=== PATIENT | female | born 1970 | race Caucasian/White ===

== ENCOUNTER → 2016-08-15 | Outpatient (CLI) | payer BC ==
--- NOTE | 2016-08-16 11:00 | MM ---
Reason for exam: screening (asymptomatic). Last mammogram was performed 1 year and 5 months ago. History: Family history of breast cancer in cousin. Physical Findings: A clinical breast exam by your physician is recommended on an annual basis and results should be correlated with mammographic findings. MG Screening Mammo w CAD Bilateral CC and MLO view(s) were taken. Prior study comparison: March 29, 2015, bilateral MG screening mammo w CAD. The breast tissue is almost entirely fat. No significant changes when compared with prior studies. ASSESSMENT: Benign, BI-RAD 2 RECOMMENDATION: Routine screening mammogram of both breasts in 1 year.
== END | disposition home or self-care (01) ==
LOC: RADMAMWWP 13:10
PROVIDERS: ATTEND Obstetrics & Gynecology
DX: Z12.31 Encounter for screening mammogram for malignant neoplasm of breast (principal)

== ENCOUNTER → 2016-08-15 | Outpatient (CLI) | payer BC ==
--- NOTE | 2016-08-15 15:02 | US ---
EXAMINATION TYPE: US thyroid st tissue head/neck DATE OF EXAM: 08/15/2016 COMPARISON: US CLINICAL HISTORY: E04.1 Thyroid nodule. Thyroid nodules GLAND SIZE: Right Lobe: 5.3 x 1.6 x 1.9 cm Overall Parenchyma: heterogenous Left Lobe: 4.7 x 1.4 x 1.6 cm Overall Parenchyma: heterogeneous Isthmus Thickness: 0.5 cm NODULES RIGHT: # of nodules measured on right: 2 1. 1.0 X 0.6 x 0.8 cm hypoechoic solid nodule at the upper pole with well-defined margins. This nod ule is wider than tall and shows intranodular vascularity. Prior size: 1.0 x 0.5 x 0.8 cm 2. 0.9 X 0.7 x 1.0 cm hypoechoic mixed nodule at the lower pole with well-defined margins. This nodu le is wider than tall and shows intranodular vascularity. Prior size: 0.7 x 0.9 x 0.6 cm LEFT: # of nodules measured on left: 0 ISTHMUS: # of nodules measured in the isthmus: 0 Bilateral neck scanned, no evidence of lymphadenopathy. Slightly heterogeneous thyroid with multiple right lobe nodules described above, left lobe nodules se en on previous exam no clearly identified on today's exam. IMPRESSION: 1. No thyroid nodules larger than 1 cm. There are some borderline nodules up to 1 cm in size within t he right lobe thyroid
== END | disposition home or self-care (01) ==
LOC: RADUSWWP 13:13
PROVIDERS: ATTEND Otolaryngology
DX: E04.1 Nontoxic single thyroid nodule (principal)
CPT/HCPCS: 76536

== ENCOUNTER 2016-08-16 08:47 | Day surgery (SDC) | payer BC ==
[2016-08-14 15:34] VITALS: BMI 41.0
[~2016-08-16 08:47] MED LIST: ACETAMINOPHEN TAB 500 MG TAB PO ONE; DEXAMETHASONE SOD PHOSPHATE 10 MG/ML 1 ML VIAL IV ONE; DEXAMETHASONE SOD PHOSPHATE 4 MG/ML 1 ML VIAL IV ONE; FAMOTIDINE 20 MG/2 ML VIAL IV ONE; HYDROmorphone 1 MG/ML 1 ML SYRINGE IVP PRN; LACTATED RINGERS 1,000 ML IV SCH; ONDANSETRON 4 MG/2 ML VIAL IVP ONE; Pre Op ABX Message 1 EACH MISC MISCELLANE ONE
[2016-08-16 09:08] VITALS: RESP 16
[2016-08-16] MEDS: OXYMETAZOLINE 0.05% NASL SPRAY 15 ML NASAL ONE ×5 (09:11→09:30)
[2016-08-16] MEDS ORDERED: LIDOCAINE 1% 20 ML VIAL (10MG/ML) FOR IV START INTRADERMA ONE (09:11)
[2016-08-16] MEDS ORDERED: MIDAZOLAM 2 MG/2 ML VIAL ONE (10:36)
[2016-08-16] MEDS ORDERED: PROPOFOL 10 MG/ML 20 ML VIAL IV ONE (10:36)
[2016-08-16] MEDS ORDERED: DEXAMETHASONE SOD PHOS (MDV) 100 MG/10 ML VIAL ONE (10:36)
[2016-08-16] MEDS ORDERED: ONDANSETRON 4 MG/2 ML VIAL ONE (10:36)
[2016-08-16] MEDS ORDERED: LIDOCAINE 1% INJ 10MG/ML (20 ML MDV) ONE (10:36)
[2016-08-16] MEDS ORDERED: SUCCINYLCHOLINE CHLORIDE VIAL 200 MG/10 ML VIAL IV ONE (10:36)
[2016-08-16] MEDS ORDERED: fentaNYL (PF) 50 MCG/ML 2 ML AMP ONE (10:36)
[2016-08-16] MEDS ORDERED: CIPROFLOXACIN-DEXAMETH 0.3-0.1% DROPS 7.5 ML BTL RIGHT EAR ONE (11:04)
--- NOTE | 2016-08-16 11:35 | P.OP ---
Date of Procedure: 08/16/16 Preoperative Diagnosis: Right mastoiditis Right chronic otitis media with effusion Right conductive hearing loss Right eustachian tube dysfunction Right hypertrophy of posterior inferior turbinate Right retained tympanostomy tube, nonfunctioning Postoperative Diagnosis: Same Procedure(s) Performed: Right direct microscopic tympanostomy with removal of retained foreign body i.e. nonfunctioning tympanostomy tube Right myringoplasty with use of a bio design graft Right direct microscopic tympanostomy and tube placement utilizing an ultraseal tube Right middle ear lavage Right balloon eustachian tuboplasty with resection of adjacent posterior inferior turbinate for decompression (partial turbinectomy) Implants: Anesthesia: GETA Surgeon: Albaro Young Estimated Blood Loss (ml): 5 Pathology: other (Right foreign body, culture right middle ear space) Condition: stable Disposition: PACU Indications for Procedure: This patient presented to the office is a 46-year-old white female who is had chronic right ear fullness with mastoiditis chronic ear infection eustachian tube dysfunction etc. CAT scan evaluation confirms such. She also has a significant conductive hearing loss in the right ear and the patient has failed medical therapy. The patient was placed on multiple antibiotics including but not excluding Augmentin and Zithromax etc. she was placed on steroids and other medications with no improvement. She has tried [id number] medications. All risks, benefits, and alternative therapies for proposed surgery were explained consent was obtained and all questions were answered. Operative Findings: Patient was found have a plug eustachian tube on the right with hypertrophy of the posterior inferior turbinate. The patient had a retained tubes that was nonfunctioning on the right with a thick amount of purulent material in the middle ear space. After removal of the tube there was a tympanic membrane perforation that needed repair. The tissue around the perforation was diseased. Description of Procedure: This patient was taken to the operative room and placed in the supine position. A general inhalation anesthetic was administered the patient by mask and subsequently intubated with a cuffed endotracheal tube by the department of anesthesia with a functioning IV line in place. The patient was monitored throughout the entire case by the department of anesthesia. The right ear was visualized with a variable focal length Zeiss microscope. A tympanostomy incision was made and an old tube was removed. There was diseased tissue around the perforation. We remove the diseased tissue freshen up the perforation edge of placed the bio design graft over this area. After the whole was grafted and myringoplasty was completed attention was then paid to the anterior inferior portion of tympanic membrane. Tympanostomy incision was made and fluid was suctioned from the middle ear space. An ultraseal tube was placed. We then irrigated that ear and the patient tolerated this well. The graft maintained its position. After the ear was irrigated the tube was placed in the whole was patched attention was then paid to the nose where with use of a 0 endoscope we followed the floor the nose into the nasopharynx. I removed the posterior portion of the inferior turbinate to decompress the anterior portion of the eustachian tube. After I removed approximately 1 cm of the posterior portion of the inferior turbinate and a partial turbinectomy was performed, we were able to identify the eustachian tube orifice on the right. With use of an entellus balloon we inserted the balloon into the eustachian tube and inflated the balloon for approximately 1 minute. This was done twice. After the balloon insufflation of the cartilaginous portion of the eustachian tube, the instrumentation was removed. The patient tolerated this well and a follow-up was scheduled for 1 week. The patient is to contact me if any problems should arise.
[2016-08-16 11:52] VITALS: TEMP 97.2
[2016-08-16 12:53] VITALS: BP 113/66; PULSE 74
== END 2016-08-16 13:13 | disposition home or self-care (01) ==
LOC: OR 08:47
PROVIDERS: ATTEND Otolaryngology
DX: H90.11 Conductive hearing loss, unilateral, right ear, with unrestricted hearing on the contralateral side (principal); H69.81 Other specified disorders of Eustachian tube, right ear; J34.3 Hypertrophy of nasal turbinates; I10 Essential (primary) hypertension; J45.909 Unspecified asthma, uncomplicated; K21.9 Gastro-esophageal reflux disease without esophagitis; Z79.2 Long term (current) use of antibiotics; Z79.899 Other long term (current) drug therapy; Z91.09 Other allergy status, other than to drugs and biological substances
CPT/HCPCS: 81025; 88304; 87070; 87205; 87075; 69424; 69949; C1726; C1763; J2250; J0330; J1100 ×2; J2405; J2001; J3010; J2704

== ENCOUNTER → 2018-04-29 | Outpatient (CLI) | payer BC ==
--- NOTE | 2018-04-30 06:20 | US ---
EXAMINATION TYPE: US thyroid st tissue head/neck DATE OF EXAM: 04/29/2018 COMPARISON: Thyroid ultrasound January 28, 2017 CLINICAL HISTORY: E04.1 thyroid nodule. GLAND SIZE: Right Lobe: 4.5 x 1.7 x 1.7 cm Overall Parenchyma: Slightly heterogeneous Left Lobe: 4.2 x 1.4 x 1.7 cm Overall Parenchyma: Slightly heterogeneous Isthmus Thickness: 0.4 cm NODULES RIGHT: # of nodules measured on right: 3 1. 0.9 X 0.5 x 0.7 cm hypoechoic nodule at the upper pole with well-defined margins. This nodule i s taller than wide and shows no intranodular vascularity. Prior size: 0.8 x 0.5 x 0.7 cm 2. 1.0 X 0.8 x 0.8 cm hypoechoic nodule at the lower pole with well-defined margins. This nodule sh ows no intranodular vascularity. Prior size: 1.0 x 0.7 x 0.9 cm 3. 0.8 X 0.6 x 0.4 cm echogenic solid nodule at the lower lateral pole with well-defined margins. T his nodule is wider than tall and shows no intranodular vascularity. Prior size: No previous LEFT: # of nodules measured on left: 0 ISTHMUS: # of nodules measured in the isthmus: 0 Bilateral neck scanned, no evidence of lymphadenopathy. IMPRESSION: There is redemonstration of slightly heterogeneous but normal sized thyroid with identification of se veral small right-sided thyroid nodules. No new greater than 1 cm thyroid nodules are evident.
== END | disposition home or self-care (01) ==
LOC: RADUSWWP 14:04
PROVIDERS: ATTEND Otolaryngology
DX: E04.2 Nontoxic multinodular goiter (principal)
CPT/HCPCS: 76536

== ENCOUNTER → 2019-08-18 | Outpatient (CLI) | payer BC ==
--- NOTE | 2019-08-20 09:40 | MM ---
Reason for exam: screening (asymptomatic). Last mammogram was performed 3 years ago. History: Family history of breast cancer in cousin. Took hormonal contraceptives for 5 years. Physical Findings: A clinical breast exam by your physician is recommended on an annual basis and results should be correlated with mammographic findings. MG Screening Mammo w CAD Bilateral CC and MLO view(s) were taken. Prior study comparison: August 15, 2016, bilateral MG screening mammo w CAD. March 29, 2015, bilateral MG screening mammo w CAD. There are scattered fibroglandular densities. Scattered benign punctate calcifications are unchanged. No significant changes when compared with prior studies. ASSESSMENT: Negative, BI-RAD 1 RECOMMENDATION: Routine screening mammogram of both breasts in 1 year.
== END ==
LOC: RADMAMWWP 13:10
PROVIDERS: ATTEND Obstetrics & Gynecology
DX: Z12.31 Encounter for screening mammogram for malignant neoplasm of breast (principal); Z80.3 Family history of malignant neoplasm of breast
CPT/HCPCS: 77067

== ENCOUNTER → 2019-08-31 | Outpatient (CLI) | payer BC ==
--- NOTE | 2019-08-31 14:30 | CT ---
EXAMINATION TYPE: CT iac wo con DATE OF EXAM: 08/31/2019 COMPARISON: CT 09/13/2015 HISTORY: hearing loss and ear drainage CT DLP: 150mGycm Automated exposure control for dose reduction was used. FINDINGS: The external auditory canals are patent bilaterally. Mastoid air cells show inflammatory c hange on the right and are clear and the left. The middle ear ossicles are symmetric and unremarkabl e. There is soft tissue density present about the auditory ossicles on the right extending into the attic, some thickening of the tympanic membrane is present on the right. Questionable intact temporal bone at the level of the auditory ossicles, possible local bone erosion into the posterior middle cr anial fossa. The scutum is preserved bilaterally. The cochlea and the semicircular canals are symmet cassy and unremarkable. Vestibular aqueduct and internal carotid canal appear unremarkable. Temporoma ndibular joints are maintained bilaterally. IMPRESSION: Correlate for possible cholesteatoma.
== END | disposition home or self-care (01) ==
LOC: RADCTMAIN 13:07
PROVIDERS: ATTEND Otolaryngology
DX: H70.91 Unspecified mastoiditis, right ear (principal)
CPT/HCPCS: 70480

== ENCOUNTER → 2019-10-07 | Outpatient (CLI) | payer BC ==
[2019-10-07 19:32] LABS: Non-African American GFR(CKD) 87.2 (60.0-200.0)
== END | disposition home or self-care (01) ==
LOC: LABWHC1 13:58
PROVIDERS: ATTEND Otolaryngology Otology & Neurotology
DX: I10 Essential (primary) hypertension (principal)
CPT/HCPCS: 36415; 82565; 84520

== ENCOUNTER → 2019-11-17 | Outpatient (CLI) | payer BC ==
[2019-11-17 15:23] LABS: Anisocytosis Slight; Basophils # (A) 0.1 k/uL (0-0.2); Basophils % (A) 1 %; Eosinophils # (A) 0.3 k/uL (0-0.7); Eosinophils % (A) 2 %; HCT 33.5 % (34.0-46.0); HGB 9.2 gm/dL (11.4-16.0); Hypochromasia Marked; Lymphocytes # (A) 2.7 k/uL (1.0-4.8); Lymphocytes % (A) 26 %; MCH 18.5 pg (25.0-35.0); MCHC 27.3 g/dL (31.0-37.0); MCV 67.6 fL (80.0-100.0); Microcytosis Marked; Monocytes # (A) 0.6 k/uL (0-1.0); Monocytes % (A) 6 %; Neutrophils # (A) 6.7 k/uL (1.3-7.7); Neutrophils % (A) 64 %; Platelet Count 474 k/uL (150-450); RBC 4.95 m/uL (3.80-5.40); RDW 17.2 % (11.5-15.5); WBC 10.6 k/uL (3.8-10.6)
== END | disposition home or self-care (01) ==
LOC: LABWHC1 14:18
PROVIDERS: ATTEND Obstetrics & Gynecology
DX: Z01.818 Encounter for other preprocedural examination (principal); I10 Essential (primary) hypertension; N92.0 Excessive and frequent menstruation with regular cycle; N94.6 Dysmenorrhea, unspecified
CPT/HCPCS: 36415; 85025; 93005

== ENCOUNTER → 2019-11-17 | Outpatient (CLI) | payer BC ==
--- NOTE | 2019-11-17 15:44 | US ---
EXAMINATION TYPE: US thyroid st tissue head/neck DATE OF EXAM: 11/17/2019 COMPARISON: 04/29/2018 CLINICAL HISTORY: E04.1 THYROID NODULE. follow up thyroid nodules GLAND SIZE: Right Lobe: 5.9 x 1.7 x 2.2 cm Overall Parenchyma: heterogenous Left Lobe: 4.5 x 1.2 x 1.4 cm Overall Parenchyma: homogeneous Isthmus Thickness: 0.3 cm NODULES RIGHT: # of nodules measured on right: 2 1. 0.9 X 0.6 x 0.8 cm hypoechoic nodule at the upper pole with poorly defined margins; . This nodu le is wider than tall and shows no intranodular vascularity. Prior size: 0.9 x 0.5 x 0.7 cm 2. 1.0 X 0.7 x 0.9 cm hypoechoic nodule at the lower pole with poorly defined margins; . This nodul e is wider than tall and shows intranodular vascularity. Prior size: 1.0 x 0.8 x 0.8 cm LEFT: # of nodules measured on left: 0 ISTHMUS: # of nodules measured in the isthmus: 0 Bilateral neck scanned, no evidence of lymphadenopathy. IMPRESSION: 1. Small stable thyroid nodules right lobe thyroid
== END | disposition home or self-care (01) ==
LOC: RADUSWWP 15:09
PROVIDERS: ATTEND Otolaryngology
DX: E04.1 Nontoxic single thyroid nodule (principal)
CPT/HCPCS: 76536

== ENCOUNTER 2019-11-24 08:52 | Day surgery (SDC) | payer BC ==
[2019-11-20 15:31] VITALS: BMI 44.8
[~2019-11-24 08:52] MED LIST changes: -ACETAMINOPHEN TAB 500 MG TAB PO ONE; -DEXAMETHASONE SOD PHOSPHATE 4 MG/ML 1 ML VIAL IV ONE; -FAMOTIDINE 20 MG/2 ML VIAL IV ONE; +HYDROmorphone 0.5 MG/0.5 ML SYRINGE IVP PRN; -HYDROmorphone 1 MG/ML 1 ML SYRINGE IVP PRN; +LIDOCAINE 1% (10MG/ML) FOR IV START INTRADERMA PRN; +MIDAZOLAM 2 MG/2 ML VIAL IV PRN
[2019-11-24] MEDS ORDERED: fentaNYL (PF) 50 MCG/ML 2 ML AMP ONE (11:03)
[2019-11-24] MEDS ORDERED: MIDAZOLAM 2 MG/2 ML VIAL ONE (11:03)
[2019-11-24] MEDS ORDERED: KETOROLAC 15 MG/ML 1 ML VIAL ONE (11:03)
[2019-11-24] MEDS ORDERED: PROPOFOL 10 MG/ML 20 ML VIAL IV ONE (11:03)
[2019-11-24] MEDS ORDERED: LIDOCAINE 1% INJ 10MG/ML (20 ML MDV) ONE (11:03)
[2019-11-24] MEDS ORDERED: SUCCINYLCHOLINE CHLORIDE 100 MG/5 ML SYR IV ONE (11:03)
--- NOTE | 2019-11-24 11:51 | P.OP ---
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 She's placed in the dorsal lithotomy position. The cervix, vagina, perineal bodies are all prepped and draped in usual sterile fashion. Urine hCG is negative. The appropriate timeout is performed to assure proper patient and procedural identification. Bladder is drained for approximately 200 mL of clear yellow urine. Weighted speculum was placed into the vagina. The anterior lip of the cervix is grasped with a double-tooth tenaculum. The uterus sounds to a depth of 9 cm in the anteverted position, with a 3 cm cervical length. The cervix is gently and systematically dilated using Hanks dilators. The hysteroscope was introduced and saline is infused. The cavity is inspected, noted to be without polyps, fibroids, or any other defects. Hysteroscope was removed. NovaSure wand is placed and seated properly. Uterine length of 6.0 cm, width of 3.8 cm is calibrated. The machine is enabled. For 58 seconds and a power of 125 W the procedure is carried out. When the machine turned off, the wand is reduced and removed. Hysteroscope was once again placed and the cavity is noted to be uniformly blanched. Instrumentation is removed from the vagina. Cervix is clean and dry. All sponge needle and enhancement counts are correct at the end of the procedure. Patient is brought back to recovery room in very good condition with stable vital signs including a blood pressure 118/61, pulse 83, 100% O2 saturation. Toradol is given prior to leaving the operative suite. She will follow-up with me in the office in 2 weeks.
[2019-11-24 12:08] VITALS: TEMP 97.5
[2019-11-24 12:12] VITALS: RESP 16
[2019-11-24 13:33] VITALS: BP 151/87; PULSE 80
== END 2019-11-24 13:49 | disposition home or self-care (01) ==
LOC: OR 08:52
PROVIDERS: ATTEND Obstetrics & Gynecology
DX: N92.0 Excessive and frequent menstruation with regular cycle (principal); N94.6 Dysmenorrhea, unspecified; N81.6 Rectocele; I10 Essential (primary) hypertension; K21.9 Gastro-esophageal reflux disease without esophagitis; H91.90 Unspecified hearing loss, unspecified ear; H81.09 Meniere's disease, unspecified ear; N76.1 Subacute and chronic vaginitis; Z98.890 Other specified postprocedural states; Z90.721 Acquired absence of ovaries, unilateral; Z97.2 Presence of dental prosthetic device (complete) (partial); Z82.61 Family history of arthritis; Z79.899 Other long term (current) drug therapy
CPT/HCPCS: 81025; 58563; J2250; J1100; J2405; J2001; J3010; J1885; J0330; J2704; J1170

== ENCOUNTER → 2020-02-03 | Outpatient (CLI) | payer BC ==
--- NOTE | 2020-02-04 10:00 | ECHOF ---
Referral Reason:R01.1 murmur MEASUREMENTS -------- HEIGHT: 172.7 cm WEIGHT: 133.4 kg BP: 183/91 RVIDd: 3.1 cm (< 3.3) IVSd: 1.5 cm (0.6 - 1.1) LVIDd: 3.8 cm (3.9 - 5.3) LVPWd: 1.4 cm (0.6 - 1.1) IVSs: 2.1 cm LVIDs: 2.9 cm LVPWs: 1.7 cm LA Diam: 3.9 cm (2.7 - 3.8) LAESV Index (A-L): 25.73 ml/m Ao Diam: 3.3 cm (2.0 - 3.7) AV Cusp: 2.2 cm (1.5 - 2.6) MV EXCURSION: 14.577 mm (> 18.000) MV EF SLOPE: 61 mm/s (70 - 150) EPSS: 0.6 cm MV E Javi: 0.93 m/s MV DecT: 259 ms MV A Javi: 1.06 m/s MV E/A Ratio: 0.88 FINDINGS -------- Sinus rhythm. This was a technically adequate study. The left ventricular size is normal. There is moderate concentric left ventricular hypertrophy. O verall left ventricular systolic function is normal with, an EF between 60 - 65 %. The right ventricle is normal in size. Normal LA size by volume 22+/-6 ml/m2. The right atrium is normal in size. Interatrial and interventricular septum intact. The aortic valve is trileaflet and appears structurally normal. The mitral valve is normal. The tricuspid valve appears structurally normal. Trace/mild (physiologic) pulmonic regurgitation. The aortic root size is normal. Normal inferior vena cava with normal inspiratory collapse consistent with estimated right atrial pre ssure of 5 mmHg. There is no pericardial effusion. CONCLUSIONS -------- 1. The left ventricular size is normal. 2. There is moderate concentric left ventricular hypertrophy. 3. Overall left ventricular systolic function is normal with, an EF between 60 - 65 %. 4. Trace/mild (physiologic) pulmonic regurgitation. 5. There is no pericardial effusion. FOREST RANGER: Coretta Mckay RDCS
== END | disposition home or self-care (01) ==
LOC: RADECHMAIN 13:47
PROVIDERS: ATTEND Family Medicine
DX: I37.1 Nonrheumatic pulmonary valve insufficiency (principal); I51.7 Cardiomegaly
CPT/HCPCS: 93306

== ENCOUNTER → 2020-02-09 | Outpatient (CLI) | payer BC | END | disposition home or self-care (01) | LOC: LABWHC1 15:27 | PROVIDERS: ATTEND Family Medicine | DX: Z20.828 Contact with and (suspected) exposure to other viral communicable diseases (principal) | CPT/HCPCS: U0003; C9803 ==

== ENCOUNTER → 2020-12-19 | Outpatient (CLI) | payer BC ==
--- NOTE | 2020-12-20 09:18 | CT ---
EXAMINATION TYPE: CT iac wo con DATE OF EXAM: 12/19/2020 COMPARISON: 08/31/2019 HISTORY: 50-year-old female H83.8X2 Other specified diseases of left inner ear. HEARING LOSS. Histor y of right-sided surgery. CT DLP: 142.70 mGycm Automated exposure control for dose reduction was used. TECHNIQUE: Contiguous high-resolution axial scanning of the temporal bones without IV contrast. Rhett nal reconstructions performed. Additional Stenver and Poschl views were generated. FINDINGS: Interval surgery with resection into the right mastoid air cells. There is residual opacification wit hin the nonresected mid to inferior mastoid air cells. At the level of resection, there is a residual 9 mm lobulated soft tissue density, axial image 43. Surgical plates partially reconstruct the anterior wall of the middle ear cavity, as well as the post erior, superior, and lateral peralta of the attic. Right lateral temporal craniotomy flap also demonstrated. Residual nodular density measuring 4 mm in the epitympanum, axial image 50. Middle ear ossicles appea r grossly intact. There is no abnormality of bony labyrinths. The vestibular and cochlear aqueducts are well visualized. The facial nerve canal is normal bilaterally. The internal auditory canal and meati are symmetrical bilaterally. Couple polyps or mucosal retention cysts measuring up to 1.9 cm within the floor of the left maxillar y sinus. Mild lobulated mucosal thickening floor of the right maxillary sinus. Rightward nasal septal deviation. Tiny 3 mm osteoma anterior left ethmoid air cells. Reformatted images confirm above findings. IMPRESSION: 1. Interval surgery on the right with temporal craniotomy flap and resection into the mastoid air abhishek ls. Trapped fluid remains in the residual, nonresected mid and inferior right mastoid air cells. At t he level of resection, there is a 9 mm rounded soft tissue density. 2. Surgical plates partially reconstruct the anterior wall of the middle ear cavity as well as the po sterior, superior, and lateral peralta of the attic. 3. Residual 4 mm nodular soft tissue density in the epitympanum.
== END | disposition home or self-care (01) ==
LOC: RADCTMAIN 13:47
PROVIDERS: ATTEND Otolaryngology Otology & Neurotology
DX: H73.891 Other specified disorders of tympanic membrane, right ear (principal)
CPT/HCPCS: 70480

== ENCOUNTER → 2021-07-20 | Outpatient (CLI) | payer BC ==
--- NOTE | 2021-07-21 15:02 | MM ---
Reason for Exam: Screening (asymptomatic). Last mammogram was performed 1 year(s) and 11 month(s) ago. Patient History: Menarche at age 14. First Full-Term at age 25. Left ovary removed at age 44. Patient used Hormonal Contraceptives for 5 years. Maternal cousin had breast cancer, age 50. Risk Values: Kia 5 year model risk: 0.9%. NCI Lifetime model risk: 8.0%. Film Views: Bilateral CC views were taken. Bilateral MLO views were taken. Prior Study Comparison: 03/29/2015 Bilateral Screening Mammogram, [facility]. 08/15/2016 Bilateral Screening Mammogram, [facility]. 08/18/2019 Bilateral Screening Mammogram, [facility]. Tissue Density: There are scattered fibroglandular densities. Findings: Analyzed By CAD. There is no suspicious group of microcalcifications or new suspicious mass in either breast. Overall Assessment: Benign, BI-RAD 2 Management: Screening Mammogram of both breasts in 1 year. A clinical breast exam by your physician is recommended on an annual basis and results should be correlated with mammographic findings. Electronically signed and approved by: Carlton Valdez M.D. Radiologis
== END | disposition home or self-care (01) ==
LOC: RADMAMWWP 16:42
PROVIDERS: ATTEND Obstetrics & Gynecology
DX: Z12.31 Encounter for screening mammogram for malignant neoplasm of breast (principal); Z80.3 Family history of malignant neoplasm of breast; Z90.721 Acquired absence of ovaries, unilateral
CPT/HCPCS: 77067

== ENCOUNTER → 2022-08-21 | Outpatient (CLI) | payer BC ==
--- NOTE | 2022-08-22 08:42 | MM ---
Reason for Exam: Screening (asymptomatic). Last mammogram was performed 1 year(s) and 1 month(s) ago. Patient History: Menarche at age 14. First Full-Term at age 25. Left ovary removed at age 44. Patient used Hormonal Contraceptives for 5 years. Maternal cousin had breast cancer, age 50. Risk Values: Kia 5 year model risk: 0.9%. NCI Lifetime model risk: 7.9%. Prior Study Comparison: 08/15/2016 Bilateral Screening Mammogram, [facility]. 08/18/2019 Bilateral Screening Mammogram, [facility]. 07/20/2021 Bilateral MG screening mammo w CAD, [facility]. Tissue Density: There are scattered fibroglandular densities. Findings: Analyzed By CAD. There is no suspicious group of microcalcifications or new suspicious mass in either breast. Overall Assessment: Negative, BI-RAD 1 Management: Screening Mammogram of both breasts in [address] [facility] will attempt to contact patient to return for supplemental views and ultrasound if indicated. Patient should continue monthly self-breast exams. A clinical breast exam by your physician is recommended on an annual basis. This exam should not preclude additional follow-up of suspicious palpable abnormalities. Note on Kia scores and lifetime risk: 1. A Kia score greater than 3% is considered moderate risk. If this is the case, consider specialist referral to assess eligibility for a risk reducing agent. 2. If overall lifetime risk for the development of breast cancer is 20% or higher, the patient may qualify for future screening with alternating mammogram and breast MRI. Electronically signed and approved by: Archie Jackson DO
== END | disposition home or self-care (01) ==
LOC: RADMAMWWP 16:34
PROVIDERS: ATTEND Family Medicine
DX: Z12.31 Encounter for screening mammogram for malignant neoplasm of breast (principal); Z80.3 Family history of malignant neoplasm of breast
CPT/HCPCS: 77067

== ENCOUNTER → 2022-12-28 | Outpatient (CLI) | payer BC ==
--- NOTE | 2022-12-28 16:06 | US ---
EXAMINATION TYPE: US thyroid st tissue head/neck DATE OF EXAM: 12/28/2022 COMPARISON: US CLINICAL INDICATION: Female, 52 years old with history of E04.1 NONTOXIC SINGLE THYROID NODULE; F/U GLAND SIZE: Right Lobe: 4.8 x 1.7 x 1.4 cm Overall Parenchyma: homogeneous Left Lobe: 4.1 x 1.3 x 1.8 cm Overall Parenchyma: homogeneous Isthmus Thickness: 0.4 cm NODULES RIGHT: # of nodules measured on right: 2 1. 0.8 X 0.6 x 0.9 cm, mid, solid or almost completely solid, hypoechoic nodule, which is wider silvestre n tall, with ill-defined margins, without echogenic foci. Prior size: 0.8 x 0.6 x 0.9 cm TR 4 2. 1.0 X 0.7 x 0.8 cm, lower, solid or almost completely solid, isoechoic nodule, which is wider th an tall, with ill-defined margins, without echogenic foci. Prior size: 1.0 x 0.7 x 0.9 cm LEFT: # of nodules measured on left: 0 ISTHMUS: # of nodules measured in the isthmus: 0 Bilateral neck scanned, no evidence of lymphadenopathy. Stable nodules right lobe. IMPRESSION: Moderately suspicious nodule. Consider follow-up exam. 2017 ACR TI-RADS LEVEL: TR-RADS 4 - Moderately Suspicious: Follow if > 1 cm, FNA if > 1.5 cm *Highest TI-RADS level nodule reported
== END | disposition home or self-care (01) ==
LOC: RADUSWWP 13:27
PROVIDERS: ATTEND Family Medicine
DX: E04.2 Nontoxic multinodular goiter (principal)
CPT/HCPCS: 76536

== ENCOUNTER → 2023-05-20 | Outpatient (CLI) | payer BC | END | disposition home or self-care (01) | LOC: LABWHC1 14:46 | PROVIDERS: ATTEND Nurse Practitioner Family | DX: K11.7 Disturbances of salivary secretion (principal) | CPT/HCPCS: 36415; 86038; 86235 ==

== ENCOUNTER 2023-12-07 18:39 | Emergency (ER) | payer BC ==
[2023-12-07 18:43] VITALS: RESP 16
[2023-12-07] MEDS: DIPH,PERTUS(ACELL)TETVAC-LF 0.5 ML VIAL IM ONE (18:52)
--- NOTE | 2023-12-07 18:52 | ED ---
Wound/Laceration HPI - General Chief Complaint: Wound/Laceration Stated Complaint: finger lac L hand Time Seen by Provider: 12/07/23 18:48 Source: patient, RN notes reviewed Mode of arrival: ambulatory Limitations: no limitations - History of Present Illness Initial Comments: -year-old female presented to the ER with a chief complaint of a right third d igit laceration. Patient states she was cutting bread with a serrated knife while making dinner and accidentally cut her finger. Patient states there is an avulsion to her left third digit. Tetanus is not up-to-date. Patient denies any other injuries or complaints. Patient states the wound is oozing. No blood thinners. - Related Data Home Medications Medication Instructions Recorded Confirmed Losartan [Cozaar] 50 mg PO DAILY 11/15/15 11/20/19 Esomeprazole Magnesium [NexIUM] 20 mg PO BID 11/20/19 11/20/19 Montelukast [Singulair] 10 mg PO HS 11/20/19 11/24/19 Allergies Allergy/AdvReac Type Severity Reaction Status Date / Time No Known Allergies Allergy Verified 11/24/19 09:02 Review of Systems ROS Statement: Those systems with pertinent positive or pertinent negative responses have been documented in the HPI. ROS Other: All systems not noted in ROS Statement are negative. Past Medical History Past Medical History: Eye Disorder, GERD/Reflux, Hypertension Additional Past Medical History / Comment(s): "PLUGGED RT EAR TUBE" PSEUDOTUMOR CEREBRI, GETS HEADACHES. HX LT PAROTID GLAND ADENOMA. GLAUCOMA History of Any Multi-Drug Resistant Organisms: None Reported Past Surgical History: Ear Surgery, Tonsillectomy Additional Past Surgical History / Comment(s): 11/21/2015 left salpingo- oophorectomy, exploratory laparotomy with pelvic washing. LEFT PAROTID REMOVAL. Tube in right ear Past Anesthesia/Blood Transfusion Reactions: Motion Sickness Past Psychological History: No Psychological Hx Reported Past Alcohol Use History: None Reported Past Drug Use History: None Reported - Past Family History Mother Family Medical History: No Reported History General Exam Limitations: no limitations General appearance: alert, in no apparent distress Respiratory exam: Present: normal lung sounds bilaterally. Absent: respiratory distress, wheezes, rales, rhonchi, stridor Cardiovascular Exam: Present: regular rate, normal rhythm, normal heart sounds. Absent: systolic murmur, diastolic murmur, rubs, gallop, clicks Extremities exam: Present: normal inspection, full ROM, normal capillary refill, other (1 cm avulsion to left third digit. Wound is oozing. 2+ left radial pulse.). Absent: tenderness, pedal edema, joint swelling, calf tenderness Neurological exam: Present: alert, oriented X3, CN II-XII intact Skin exam: Present: warm, dry, intact, normal color. Absent: rash Course Vital Signs 12/07/23 18:40 Temperature 97.8 F Pulse Rate 75 Respiratory 16 Rate Blood Pressure 171/85 O2 Sat by Pulse 94 L Oximetry Procedures - Laceration Laceration #1 Consent Obtained: verbal consent Indication: laceration Site: hand Size (cm): 1 Description: linear Depth: simple, single layer Anesthetic Used: lidocaine 1%, without epi Anesthesia Technique: local infiltration Amount (mls): 1 Pre-repair: wound explored, irrigated extensively, deep structures intact Type of Sutures: nylon Size of Sutures: 5-0 Number of Sutures: 1 Technique: simple, interrupted Patient Tolerated Procedure: well Medical Decision Making - Medical Decision Making Was pt. sent in by a medical professional or institution ([facility] Price, [employer]IN FILTERER, urgent care, hospital, or [facility]...) When possible be specific @ -No Did you speak to anyone other than the patient for history (EMS, parent, family, police, friend...)? What history was obtained from this source @ -No Did you review nursing and triage notes (agree or disagree)? Why? @ -I reviewed and agree with nursing and triage notes Were old charts reviewed (outside hosp., previous admission, EMS record, old EKG, old radiological studies, urgent care reports/EKG's, [facility] records)? Report findings @ -No old charts were reviewed Differential Diagnosis (chest pain, altered mental status, abdominal pain women, abdominal pain men, vaginal bleeding, weakness, fever, dyspnea, syncope, headache, dizziness, GI bleed, back pain, seizure, CVA, palpatations, mental health, musculoskeletal)? @ -Laceration, abrasion, contusion, avulsion, foreign body this list is not m eant to be all-inclusive EKG interpreted by me (3pts min.). @ -None done X-rays interpreted by me (1pt min.). @ -None done CT interpreted by me (1pt min.). @ -None done U/S interpreted by me (1pt. min.). @ -None done What testing was considered but not performed or refused? (CT, X-rays, U/S, labs)? Why? @ -None What meds were considered but not given or refused? Why? @ -None Did you discuss the management of the patient with other professionals (professionals i.e. DrAnjali, PA, RESIN FILTERER, lab, RT, psych nurse, mental health social worker, pull out operator, teacher, tactical response group officer, pillowcase cutter)? Give summary @ -No Was smoking cessation discussed for >3mins.? @ -No Was critical care preformed (if so, how long)? @ -No Were there social determinants of health that impacted care today? How? (Homelessness, low income, unemployed, alcoholism, drug addiction, transportation, low edu. Level, literacy, decrease access to med. care, usp, rehab)? @ -No Was there de-escalation of care discussed even if they declined (Discuss DNR or withdrawal of care, Hospice)? DNR status @ -No What co-morbidities impacted this encounter? (DM, HTN, Smoking, COPD, CAD, Cancer, CVA, ARF, Chemo, Hep., AIDS, mental health diagnosis, sleep apnea, morbid obesity)? @ -None Was patient admitted / discharged? Hospital course, mention meds given and route, prescriptions, significant lab abnormalities, going to OR and other pertinent info. @ -Discharge. 53-year-old female presented to the ER with a chief complaint of a finger laceration. History and physical exam completed. Vitals within normal limits. Patient in no signs of acute distress. Exam remarkable for a 1 cm avulsion to left third digit. Active bleeding present. Left upper extremity neurovascular intact with full active range of motion. Tetanus updated. 1 simple interrupted suture placed to control bleeding, with improvement. Advise removal in 10 to 14 days. Suture care discussed. Strict return parameters discussed. Patient discharged in stable condition with follow-up to PCP. Patient verbally expressed understanding and agreement with care plan. Case discussed with ED attending, Dr. Martinez. Undiagnosed new problem with uncertain prognosis? @ -No Drug Therapy requiring intensive monitoring for toxicity (Heparin, Nitro, Insulin, Cardizem)? @ -No Were any procedures done? @ -Yes Diagnosis/symptom? @ -Avulsion to finger Acute, or Chronic, or Acute on Chronic? @ -Acute Uncomplicated (without systemic symptoms) or Complicated (systemic symptoms)? @ -Uncomplicated Side effects of treatment? @ -No Exacerbation, Progression, or Severe Exacerbation? @ -No Poses a threat to life or bodily function? How? (Chest pain, [place], [place], pneumonia, PE, COPD, DKA, ARF, appy, cholecystitis, CVA, Diverticulitis, Homicidal, Suicidal, threat to staff... and all critical care pts) @ -No Disposition Clinical Impression: Avulsion of finger Disposition: HOME SELF-CARE Condition: Stable Instructions (If sedation given, give patient instructions): Care For Your Stitches (DC) Additional Instructions: Keep ear clean and dry. Have suture removed in 10 days. Monitor for signs of bulge including surrounding redness, swelling or drainage. You may take [id number] ibuprofen and Tylenol for pain control. Follow-up with PCP. Return to the ER for any new or worsening concerns. Is patient prescribed a controlled substance at d/c from ED?: No Referrals: Johnnie Figueroa DO [Primary Care Provider] - 1-2 days Time of Disposition: 19:27
[2023-12-07] MEDS: LIDOCAINE 1% INJ 10MG/ML (20 ML MDV) SQ ONE (19:17)
[2023-12-07 19:34] VITALS: BP 174/79; PULSE 80; TEMP 98.1
== END 2023-12-07 19:34 | disposition home or self-care (01) ==
LOC: EC 18:39
CPT/HCPCS: 12001; 90471; 90715; 99282

== ENCOUNTER → 2023-12-19 | Outpatient (CLI) | payer BC ==
--- NOTE | 2023-12-23 17:53 | MM ---
Reason for Exam: Screening (asymptomatic). Last mammogram was performed 1 year(s) and 4 month(s) ago. Patient History: Menarche at age 14. First Full-Term at age 25. Left ovary removed at age 44. Postmenopausal. Patient used Hormonal Contraceptives for 5 years. Maternal cousin had breast cancer, age 50. Maternal aunt had ovarian cancer, age 60. Risk Values: Kia 5 year model risk: 0.9%. NCI Lifetime model risk: 7.8%. Prior Study Comparison: 03/29/2015 Bilateral Screening Mammogram, [facility]. 08/15/2016 Bilateral Screening Mammogram, [facility]. 08/18/2019 Bilateral Screening Mammogram, [facility]. 07/20/2021 Bilateral MG screening mammo w CAD, [facility]. 08/21/2022 Bilateral MG screening mammo w CAD, [facility]. Tissue Density: There are scattered areas of fibroglandular density. Findings: Analyzed By CAD. Asymmetric density right MLO view is unchanged. There is no suspicious group of microcalcifications or new suspicious mass in either breast. Overall Assessment: Benign, BI-RAD 2 Management: Screening Mammogram of both breasts in 1 year. . Patient should continue monthly self-breast exams. A clinical breast exam by your physician is recommended on an annual basis. This exam should not preclude additional follow-up of suspicious palpable abnormalities. Note on Kia scores and lifetime risk: 1. A Kia score greater than 3% is considered moderate risk. If this is the case, consider specialist referral to assess eligibility for a risk reducing agent. 2. If overall lifetime risk for the development of breast cancer is 20% or higher, the patient may qualify for future screening with alternating mammogram and breast MRI. [facility], , 12/23/2023 5:50 PM. Electronically signed and approved by: Rose Riley M.D. Radiologist
== END | disposition home or self-care (01) ==
LOC: RADMAMWWP 12:30
PROVIDERS: ATTEND Family Medicine
CPT/HCPCS: 77063; 77067